=== PATIENT | female | born 1985 | race African-American/Black ===

== ENCOUNTER 2017-09-09 14:51 | Emergency (ER) | payer MEDICAID, OTHER ==
[~2017-09-09] VITALS: Ht 170.2 cm; Wt 93.0 kg
[~2017-09-09 14:51] MED LIST: IRON; NORCO
[2017-09-09 15:56] VITALS: BP 157/95
[2017-09-09] MEDS ORDERED: ACETAMINOPHEN 500MG TABLET PO ONE (17:00)
== END 2017-09-09 18:12 | disposition home or self-care (01) ==
LOC: ER 15:15
DX: M13.861 Other specified arthritis, right knee (principal); M13.871 Other specified arthritis, right ankle and foot; Z88.0 Allergy status to penicillin; Z98.890 Other specified postprocedural states; Z88.6 Allergy status to analgesic agent; Z87.828 Personal history of other (healed) physical injury and trauma
CPT/HCPCS: 73562; 73630; 81025; 99284